=== PATIENT | male | born 1965 | race Caucasian/White ===

== ENCOUNTER → 2018-05-03 | Outpatient (CLI) | payer OTHER | END | disposition home or self-care (01) | LOC: KCIC 15:25 | DX: M19.011 Primary osteoarthritis, right shoulder (principal); M47.896 Other spondylosis, lumbar region; M48.05 Spinal stenosis, thoracolumbar region | CPT/HCPCS: 72110; 73030 ==

== ENCOUNTER → 2018-06-01 | Outpatient (CLI) | payer OTHER | END | disposition home or self-care (01) | LOC: KCIC 14:08 | DX: M19.041 Primary osteoarthritis, right hand (principal); E78.00 Pure hypercholesterolemia, unspecified; I10 Essential (primary) hypertension | CPT/HCPCS: 73130 ==

== ENCOUNTER → 2018-11-03 | Outpatient (CLI) | payer OTHER ==
[2014-11-22 19:15] VITALS: BP 142/79
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
--- NOTE | 2018-11-03 10:28 | KCIC ---
MR of the right shoulder Indication: Right shoulder pain, chronic, after throwing injury several months ago.. Comparison: None are available. Technique: Standard multiplanar sequences are obtained. Findings: Artifact: No significant image degradation. Acromioclavicular joint: Primary osteoarthritis, with moderate undersurface osteophytes and mass effect. Rotator cuff: * Supraspinatus-infraspinatus tendon: Partial-thickness undersurface tear of supraspinatus tendon measures 1 cm wide by less than 1 cm AP, and is about 80-90 percent deep. No complete through and through rupture. Generalized tendinosis. * Subscapularis tendon: Tendinosis with mild partial tear. * Muscle bulk: Within normal limits * Subacromial subdeltoid bursa: Small effusion. Fluid: No significant glenohumeral effusion. Glenohumeral cartilage: No acute defect or advanced DJD. Labrum: No evidence of labral detachment. Biceps tendon: Intact Bones: Mild cystic changes at the greater tuberosity, likely degenerative related to rotator cuff disease. Soft tissue: No acute findings.. Impression: 1. Small but deep undersurface tear of the supraspinatus tendon, mild partial subscapularis tendon tear. 2. Primary acromioclavicular joint osteoarthritis with undersurface mass effect. Electronically signed by: Bhupinder Vargas MD (11/03/2018 10:24 AM) [facility]
== END | disposition home or self-care (01) ==
LOC: KCIC MRI 08:27
PROVIDERS: ATTEND Family Medicine
DX: M19.011 Primary osteoarthritis, right shoulder (principal); G89.29 Other chronic pain
CPT/HCPCS: 73221; 74018

== ENCOUNTER → 2019-09-06 | Outpatient (CLI) | payer OTHER ==
[2014-11-22 19:15] VITALS: BP 142/79
--- NOTE | 2019-09-07 16:37 | KCIC ---
LUMBAR SPINE MIN 4V History: Chronic back pain. Left-sided sciatica Technique: 5 views of the lumbar spine Comparison: May 03, 2018 Findings: Minimal retrolisthesis and L1 on L2 and L2 on L3, unchanged. Normal vertebral body height. No fracture. Mild multilevel degenerative disc changes most prominent L1-L2, L3-L4 and L5-S1. Mild to moderate lower lumbar facet arthropathy. Atheromatous calcific effusions within the infrarenal abdominal aorta. Impression: 1. Mild/moderate multilevel lumbar spondylosis, similar compared to prior. Electronically signed by: Aakash Lewis DO (09/07/2019 4:34 PM) [facility]
== END | disposition home or self-care (01) ==
LOC: KCIC 15:45
PROVIDERS: ATTEND Family Medicine
DX: M51.37 Other intervertebral disc degeneration, lumbosacral region (principal); M47.816 Spondylosis without myelopathy or radiculopathy, lumbar region; G89.29 Other chronic pain
CPT/HCPCS: 72110

== ENCOUNTER → 2021-01-28 | Outpatient (CLI) | payer OTHER ==
[2014-11-22 19:15] VITALS: BP 142/79
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
== END ==
LOC: KCIC 11:02
PROVIDERS: ATTEND Physician Assistant
DX: Z79.899 Other long term (current) drug therapy (principal); Z87.891 Personal history of nicotine dependence
CPT/HCPCS: 71046